=== PATIENT | female | born 1995 | race Native Hawaiian/Other Pacific Islander ===

== ENCOUNTER 2018-11-23 11:36 | Emergency (ER) | payer MEDICAID ==
[~2018-11-23] VITALS: Ht 157.5 cm; Wt 52.6 kg
[2018-11-23 12:30] LABS: Basophils # (auto) 0.1 uL; Basophils % (auto) 0.8 % (0.0-2.0); Eosinophils # (auto) 0.1 uL; Eosinophils % (auto) 0.9 % (0.0-7.0); Hematocrit 43.1 % (36.0-46.0); Hemoglobin 14.3 g/dL (12.2-16.2); Lymphocytes % (auto) 19.7 % (10.0-50.0); Mean Corpuscular Hemoglobin 29.5 pg (28.0-32.0); Mean Corpuscular Hgb Conc. 33.1 g/dL (32.0-36.0); Mean Corpuscular Volume 89.3 fL (80.0-100.0); Monocytes # (auto) 0.6 uL; Monocytes % (auto) 6.2 % (0.0-12.0); Neutrophils # (auto) 7.5 uL; Neutrophils % (auto) 72.4 % (37.0-80.0); Platelet Count (auto) 255 10^3/uL (140-450); Red Blood Cells 4.83 10^6/uL (4.0-5.20); Red Cell Distribution Width 12.4 % (11.8-14.3); White Blood Cell 10.3 10^3/uL (4.4-10.8)
[2018-11-23 12:45] LABS: Urine Bacteria MOD /hpf (None Seen); Urine Blood Negative /uL (Negative); Urine Specific Gravity 1.014 (1.001-1.035); Urine WBC 10 /hpf (0 - 5)
[2018-11-23 12:54] LABS: BUN/Creatinine Ratio 13.3; Potassium 3.6 mmol/L (3.5-5.1)
[2018-11-23 12:58] LABS: Bilirubin, Total 0.6 mg/dL (0.2-1.0); Calcium 8.9 mg/dL (8.5-10.1); Total Protein 8.8 g/dL (6.4-8.2)
[2018-11-23 15:42] VITALS: BP 111/77
== END 2018-11-23 16:13 | disposition home or self-care (01) ==
LOC: ER 11:36
DX: R07.89 Other chest pain (principal); N39.0 Urinary tract infection, site not specified
CPT/HCPCS: 36415; 71046; 80053; 81001; 81025; 84484; 85025; 93005